=== PATIENT | male | born 1965 | race Caucasian/White ===

== ENCOUNTER 2022-12-29 06:21 | Day surgery (SDC) | payer OTHER, SELFPAY ==
[2022-10-08 13:42] VITALS: BMI 30.7
[2022-11-05 13:52] VITALS: BMI 31.6
--- NOTE | 2022-12-12 11:55 | SUR.PREOP ---
pt states no change in recent health hx. no new medications since prior interview. new time/date provided.
--- NOTE | 2022-12-26 16:40 | PM.HPGS ---
History of Present Illness History of Present Illness Consent: Risks, benefits, and alternatives have been discussed and questions answered. Patient agrees to proceed with procedure. Chief complaint: History of Colon Polyps Narrative: Tor Mahoney is a 57 year old male Referred for colon cancer screening. Seven years ago he had 4 polyps removed at the time of a colonoscopy. Review of Systems Review of Systems: All systems reviewed & are unremarkable except as noted in HPI and below PMFSH Past Medical History Medical History Hyperlipidemia Hypertension Social History Social History Smoking status: Never smoker Tobacco type: cigarettes Alcohol intake: current Drinks per week: 5 Alcohol use details: beer Substance use: never Substance use type: does not use Living arrangements: with family Spiritual care concerns: No Meds Home Medications and Allergies Home Medications Medication Instructions Recorded Confirmed Type allopurinol 300 mg tablet 300 mg PO BID 09/26/22 12/29/22 History lisinopril 10 mg tablet 10 mg PO DAILY 09/26/22 12/29/22 History simvastatin 40 mg tablet 40 mg PO DAILY 09/26/22 12/29/22 History multivitamin 1 tablet PO DAILY 11/05/22 12/29/22 History Allergies Allergy/AdvReac Type Severity Reaction Status Date / Time No Known Allergies Allergy Verified 12/29/22 06:40 Exam Const: General: alert Orientation/consciousness: patient oriented x3 Resp: Auscultation: clear to auscultation bilaterally Cardio: Rhythm: regular rhythm GI: GI Palp: Yes Soft to palpation and No Tenderness to palpation present (GI) Neuro: General: patient oriented x3 Assessment and Plan Assessment and plan (1) Colon cancer screening: Code(s): Z12.11 - Encounter for screening for malignant neoplasm of colon Status: Acute Assessment and Plan: Colonoscopy with possible biopsy or polypectomy or cautery or injection of substances.
[2022-12-29] MEDS: LACTATED RINGERS 1,000 ML 150 ML IV CONT (06:45)
[2022-12-29 06:46] VITALS: BP 149/95; PULSE 59; RESP 16; O2SAT 97
--- NOTE | 2022-12-29 06:48 | WPDANESEPPF ---
Anes - Initial Pre Proc Eval Procedure: Operation Date: 12/29/22 08:00 Proposed Procedures p Diagnostic Colonoscopy - Robert Pitts MD Date/Time: 12/29/22 06:48 Surgeon: Robert Pitts MD Pre Op Diagnosis: History of Colon Polyps Patient Data Age: 57 Gender: M Height: 1.78 m Weight: 101.3 kg Last Vital Signs Pulse 59 L 12/29/22 06:46 Resp 16 12/29/22 06:46 BP 149/95 H 12/29/22 06:46 Pulse Ox 97 12/29/22 06:46 O2 Del Method Room Air 12/29/22 06:46 Allergies Allergy/AdvReac Type Severity Reaction Status Date / Time No Known Allergies Allergy Verified 12/29/22 06:40 Home Medications Medication Instructions Recorded Confirmed Type allopurinol 300 mg tablet 300 mg PO BID 09/26/22 12/29/22 History lisinopril 10 mg tablet 10 mg PO DAILY 09/26/22 12/29/22 History simvastatin 40 mg tablet 40 mg PO DAILY 09/26/22 12/29/22 History multivitamin 1 tablet PO DAILY 11/05/22 12/29/22 History Patient hx anesthesia problems: none Family hx anesthesia problems: none Results Review: All pre-operative results and documents have been reviewed as part of the pre-operative evaluation. [facility] Past Medical History Medical History (Updated 12/29/22 @ 06:51 by Stevo Min DO) Hyperlipidemia Hypertension Social History Social History Smoking status: Never smoker Tobacco type: cigarettes Alcohol intake: current Drinks per week: 5 Alcohol use details: beer Substance use: never Substance use type: does not use Living arrangements: with family Spiritual care concerns: No Anes - Eval Final PreProcedure Day of Procedure 12/29/22 06:48 Patient weight: obese Heart: regular rate and rhythm Lungs: clear to auscultation Airway: Mallampati scale class II Neurological: alert and oriented Last oral intake: >/= 8 hours ASA classification: III Emergent: no Anesthetic plan: proceed Anesthesia type and monitoring: general GIVS and standard monitoring Results Review: All pre-operative results and documents have been reviewed as part of the pre-operative evaluation. Informed Consent: The patient's anesthetic plan and its attendant risks and benefits were discussed with the patient/family/POA. Questions were solicited and answers provided to the satisfaction of the patient/family/POA.
[2022-12-29 08:04] VITALS: BP 114/80; PULSE 57; RESP 18; O2SAT 97
[2022-12-29 08:14] VITALS: BP 126/86; PULSE 57; RESP 20; O2SAT 98
[2022-12-29 08:24] VITALS: BP 120/90; PULSE 58; RESP 20; O2SAT 99
--- NOTE | 2022-12-29 12:03 | WPDANESPN ---
Anes - Prog Note Post-Op Date/Time: 12/29/22 12:03 Cardiovascular status: normal Respiratory status: normal Airway patency: baseline Mental status: baseline Post-Op hydration status: normal Vital Signs: Last Vital Signs Pulse 58 L 12/29/22 08:24 Resp 20 12/29/22 08:24 BP 120/90 12/29/22 08:24 Pulse Ox 99 12/29/22 08:24 O2 Del Method Room Air 12/29/22 08:24 Pain Score (VAS): 0 I/O: Intake & Output 12/28/22 12/29/22 12/29/22 23:59 07:59 15:59 Intake Total 300 Balance 300 Post-procedural complaints: none Patient Feedback: Patient satisfied with anesthetic care. Other Findings: Patient vital signs back to baseline. Patient denies nausea and vomiting. Patient's pain under control. Patient OK for discharge.
== END 2022-12-29 08:35 | disposition home or self-care (01) ==
PROVIDERS: PCP Internal Medicine; Visit Provider Internal Medicine Gastroenterology
PROC: 0DJD8ZZ Inspection of Lower Intestinal Tract, Via Natural or Artificial Opening Endoscopic (ICD-10-PCS; CPT 45378; principal; 2022-12-29 08:00)
DX: Z12.11 Encounter for screening for malignant neoplasm of colon (principal)
CPT/HCPCS: 45380

== ENCOUNTER 2022-12-29 09:00 | Outpatient (NON) | payer OTHER, SELFPAY | END 2022-12-29 09:01 | disposition home or self-care (01) | LOC: ANHLAB 12-30 07:11 | PROVIDERS: PCP Internal Medicine; Visit Provider Internal Medicine Gastroenterology | DX: Z12.11 Encounter for screening for malignant neoplasm of colon (principal) | CPT/HCPCS: 88305 ==

== ENCOUNTER 2024-04-07 08:23 | Outpatient (CLI) | payer OTHER, SELFPAY ==
--- NOTE | 2024-04-07 | ECHO_ITS ---
Patient Info Name: Tor Mahoney Age: 58 years : 1965 Gender: Male Ht: 71 in Wt: 225 lbs BSA: 2.29 m2 HR: 70 bpm BP: 153 / 93 mmHg Heart Rhythm: Sinus Rhythm Technical Quality: Good Exam Date: 04/07/2024 8:55 AM Exam Location: Echo Lab Patient Status: Outpatient Admit Date: 04/07/2024 Staff Ordering Physician: KrystianNithin MD Press Helper: Cody Wilson RDCS Attending Provider: KrystianNithin MD Exam Type: CA echo doppler color flow Study Info Indications - ESSENTIAL HTN Complete two-dimensional, color flow and Doppler transthoracic echocardiogram is performed. Summary 1. Complete two-dimensional, color flow and Doppler transthoracic echocardiogram is performed. 2. Left ventricular chamber dimension is normal. 3. Left ventricular systolic function is normal, estimated at 60-65%. 4. There is mild concentric increased left ventricular wall thickness. 5. The left ventricular diastolic function is abnormal. 6. E/e' 12 is mildly elevated. 7. There is mild aortic valve sclerosis. 8. There is mild aortic valve regurgitation. 9. No pulmonary hypertension, estimated pulmonary arterial systolic pressure is 26 mmHg. Left Ventricle E/e' 12 is mildly elevated. Left ventricular chamber dimension is normal. Left ventricular systolic function is normal, estimated at 60-65%. There is mild concentric increased left ventricular wall thickness. The left ventricular diastolic function is abnormal. Right Ventricle Right ventricular chamber dimension is normal. Right ventricular systolic function is normal. Left Atria Left atrial chamber dimension is normal. Right Atria Right atrial chamber dimension is normal. Aortic Valve The aortic valve is trileaflet. There is mild aortic valve sclerosis. There is no aortic valve stenosis. There is mild aortic valve regurgitation. Pulmonic Valve There is no pulmonic regurgitation. Mitral Valve There is no mitral valve stenosis. There is no mitral valve regurgitation. Tricuspid Valve There is no tricuspid valve regurgitation. No pulmonary hypertension, estimated pulmonary arterial systolic pressure is 26 mmHg. Pericardium/Pleural There is no pericardial effusion. Inferior Vena Cava Normal inferior vena cava with >50% collapse upon inspiration consistent with normal right atrial pressure, 5 mmHg. Aorta The aortic root size at the sinus of Valsalva is normal. Left Ventricular Outflow Tract Name Value Normal LVOT 2D LVOT Diameter 1.8 cm LVOT Doppler LVOT Peak Gradient 6 mmHg LVOT Mean Gradient 3 mmHg LVOT VTI 31 cm LVOT VTI/AV VTI Ratio 0.7 LVOT Stroke Volume 77 ml LVOT CO 5.0 l/min LVOT CI 2.2 l/min/m2 Mitral Valve Name Value Normal MV Doppler MV Decel Whitfield 327 cm/s2 MV PHT 73 ms MV Area (PHT) 3.0 cm2 4.0-5.0 MV Diastolic Function MV E Peak Velocity 82 cm/s MV A Peak Velocity 78 cm/s MV E/A 1.0 MV Decel Time 250 ms MV Annular TDI MV E/e' (Septal) 11.7 <=8.0 MV E/e' (Lateral) 12.4 <=8.0 MV E/e' (Average) 12.1 Tricuspid Valve Name Value Normal TV Regurgitation Doppler TR Peak Velocity 228 cm/s TR Peak Gradient 21 mmHg Estimated PAP/RSVP RA Pressure 5 mmHg <=5 PA Systolic Pressure 26 mmHg <36 RV Systolic Pressure 26 mmHg <36 Aortic Valve Name Value Normal AV Doppler AV Peak Velocity 217 cm/s AV Peak Gradient 19 mmHg AV Mean Gradient 11 mmHg AV VTI 43 cm AV Area (Cont Eq VTI) 1.8 cm2 >=3.0 AV Area (Cont Eq Alpesh) 1.4 cm2 AV Regurgitation 2D LVOT Area 2.5 cm2 AV Regurgitation Doppler AR Decel Time 13,225 ms AR Decel Whitfield 22 cm/s2 AR PHT 3,835 ms Ventricles Name Value Normal LV Dimensions 2D/MM IVS Diastolic Thickness (2D) 1.3 cm 0.6-1.0 LVID Diastole (2D) 4.7 cm 4.2-5.8 LVIW Diastolic Thickness (2D) 1.2 cm 0.6-1.0 LVID Systole (2D) 3.0 cm 2.5-4.0 LVOT Diameter 1.8 cm LV Mass (2D Cubed) 226.19 g 88.00-224.00 LV Mass Index (2D Cubed) 99 g/m2 49-115 Relative Wall Thickness (2D) 0.53 LV Fractional Shortening/Ejection Fraction 2D/MM LV Fractional Shortening (2D) 36 % 25-43 LV EF (2D Teicholz) 66 % 52-72 LV Diastolic Volume (4C MOD) 158 ml LV EF (4C MOD) 72 % LV Diastolic Volume (2C MOD) 108 ml LV EF (2C MOD) 58 % LV Diastolic Volume (BP MOD) 134 ml 62-150 LV Diastolic Volume Index (BP MOD) 58 ml/m2 34-74 LV Systolic Volume (BP MOD) 47 ml 21-61 LV Systolic Volume Index (BP MOD) 20 ml/m2 11-31 LV EF (BP MOD) 65 % 52-72 LV Diastolic Length (4C) 8.4 cm LV Systolic Length (4C) 5.9 cm LV Stroke Volume (4C MOD) 115 ml Atria Name Value Normal LA Dimensions LA Volume (4C A-L) 30 ml LA Volume (BP A-L) 32 ml RA Dimensions RA Area (4C) 9.4 cm2 <=18.0 Report Signatures
== END 2024-04-07 08:24 | disposition home or self-care (01) ==
PROVIDERS: PCP Internal Medicine; Visit Provider Internal Medicine
DX: I11.9 Hypertensive heart disease without heart failure (principal); I35.8 Other nonrheumatic aortic valve disorders; I35.1 Nonrheumatic aortic (valve) insufficiency
CPT/HCPCS: 93306